=== PATIENT | female | born 1990 | race Caucasian/White ===

== ENCOUNTER 2018-02-26 08:13 | Emergency (ER) | payer OTHER ==
[~2018-02-26] VITALS: Ht 165.1 cm; Wt 98.4 kg
[2018-02-26 08:19] VITALS: BP 125/66
[2018-02-26] MEDS ORDERED: IBUPROFEN 800 MG TAB ONE (08:44)
[2018-02-26] MEDS: IBUPROFEN 600 MG TAB PO ONE (08:45)
[2018-02-26 10:04] VITALS: BP 113/72
== END 2018-02-26 10:04 | disposition home or self-care (01) ==
LOC: MED 08:13
DX: G44.209 Tension-type headache, unspecified, not intractable (principal); G43.909 Migraine, unspecified, not intractable, without status migrainosus; Z88.0 Allergy status to penicillin
CPT/HCPCS: 70450; 81025; 99284